=== PATIENT | male | born 1970 | race Hispanic/Latino ===

== ENCOUNTER 2019-08-01 | Emergency (ER) | payer OTHER | END 2019-08-02 04:30 | disposition short-term general hospital (02) | DRG 563 | DX: S92.011A Displaced fracture of body of right calcaneus, initial encounter for closed fracture (principal); S92.012A Displaced fracture of body of left calcaneus, initial encounter for closed fracture; W17.89XA Other fall from one level to another, initial encounter; Y92.149 Unspecified place in prison as the place of occurrence of the external cause ==